=== PATIENT | male | born 1990 | race Caucasian/White ===

== ENCOUNTER 2022-06-20 17:39 | Emergency (ER) | payer OTHER, SELFPAY ==
[2022-06-20 18:00] VITALS: BP 156/109; PULSE 97; RESP 16; TEMP 37; O2SAT 96; BMI 23.3
--- NOTE | 2022-06-20 18:42 | ED.GENADULT ---
HPI - General Adult General Chief complaint: Toxicology Problem Stated complaint: welbutrin bad reaction/vomiting/anxious Time Seen by Provider: 06/20/22 18:11 Source: patient and family Mode of arrival: Ambulatory History of Present Illness HPI narrative: 32-year-old gentleman with a history of anxiety and depression currently [employer] and [place] Was initially prescribed Prozac but found that it made him quite flat and had adverse sexual side effects. Medication was changed to Wellbutrin 150 SR b.i.d.. He was instructed to take 20 mg of Prozac to taper down and only once daily Wellbutrin 150 and then increase to Wellbutrin b.i.d. once the Prozac had been completely discontinued. In following this he is found that he is dramatically agitated, can not sit focus or concentrate. He is having difficulty sleeping. He is lost almost 15 lb in a week. He feels like he is going to climb out of his skin in his convinced he is in fact ?going crazy?. He is not complaining of headaches palpitations, chest pain, seizure-like activity. He does have outpatient counseling follow-up as well as Psychiatry follow-up. Is not feeling suicidal. Review of Systems Review of Systems Narrative: Remainder of complete review of systems is otherwise unremarkable except for that included in the HPI. Patient History Medical History (Updated 06/21/22 @ 01:56 by Elsy Moyer MD) Anxiety and depression Social History Smoking Status: Never smoker Smoking Status: Never smoker alcohol intake frequency: holidays/special occasions only Substance Use Type: does not use Exam Initial Vital Signs Initial Vital Signs: Vital Signs Temperature 98.6 F 06/20/22 18:00 Pulse Rate 97 H 06/20/22 18:00 Respiratory Rate 16 06/20/22 18:00 Blood Pressure 156/109 H 06/20/22 18:00 Pulse Oximetry 96 06/20/22 18:00 Oxygen Delivery Method 06/20/22 18:00 General: Alert, psychomotor agitation, anxious Respiratory: Able to speak in full sentences, no obvious respiratory distress Cardiac: Mild tachycardia without murmurs Skin: No obvious rashes, warm and dry Neurologic: Grossly intact no obvious asymmetries or abnormalities Psych: appropriate insight and affect, cooperative, Course Orders Ordered: Discontinued Medications Diazepam (Diazepam 5 Mg Tablet) 5 mg PO NOW ONE Stop: 06/20/22 18:43 Last Admin: 06/20/22 19:01 Dose: 5 mg Documented By: CHING Vital Signs Vital signs: Vital Signs - 8 hr 06/20/22 18:00 06/20/22 19:09 Temperature 98.6 F Pulse Rate 97 H 82 Respiratory Rate 16 14 Blood Pressure 156/109 H 134/83 Pulse Oximetry 96 94 Oxygen Delivery Method Room Air Room Air Medical Decision Making MDM Narrative Medical decision making narrative: CC: Increased agitation with new medication. This is a new problem, uncertain diagnosis with potential for life-threatening complication Complicating co-morbidities: ADHD, anxiety, depression Corroborating data: Data collected from: patient, Differential considered: Nehal, acute psychosis, psychomotor agitation, adverse reaction to medication, anxiety Exam documented above, pertinent findings include: Psychomotor agitation with good insight into his increased anxiety and concern that medications are making symptoms worse. Discussion: 32-year-old gentleman with significant reaction to Prozac at 40 mg and Wellbutrin to replace it increased to 150 mg b.i.d.. In the fact that he does have ADHD using the more stimulating Wellbutrin certainly makes sense however he has not been able to sleep eat he is lost 15 lb he is having difficulty focusing and isn't sure what to do. He is afraid to stop the medication and he is also afraid to continue the medication. We would a long discussion about anxiety and medication side effects. At this point I do not think he is exhibiting acute psychosis or hypomania. He is not having any suicidal ideation. He was very relieved to know that he could stop the medication. He was given 5 mg of oral diazepam in the emergency department to help with the immediate anxiety and we discussed the timeframe to expect the Wellbutrin to be completely out of his system. Encouraged him to contact his psychiatrist tomorrow to schedule at least a tele video appointment. Clearly Wellbutrin and Prozac are not going to be options and treating his anxiety. I did reassure him that there are multiple other options and help is still going to be very available. He and his were both reassured and he is safe for discharge home Disposition: see below, along with detailed discharge instructions that have been reviewed with patient as well as indications for ED re-evaluation and additional outpatient follow up Discharge Plan Departure Patient Disposition: Home Clinical Impression: Anxiety Adverse drug reaction Qualifiers: Encounter type: initial encounter Qualified Code(s): T50.905A - Adverse effect of unspecified drugs, medicaments and biological substances, initial encounter Instructions: DI for Anxiety -- Adult Activity Restrictions/Additional Instructions: Thank you for coming in today I am sorry you are suffering with the side effects of these medications. Clearly, your body and body chemistry does not mix well with prozac or wellbutrin. You can just stop the wellbutrin, you have not been on it long enough to need to taper. I have given you a 5mg dose of diazepam, an anxiety medication, to help with the overstimulation and agitation from the wellbutrin. These are known side effects of wellbutrin (this in not an allergic reaction). Some people simply have more impressive reactions. I would expect the significant agitation to improve over the next 12-24 hours and the rest of the symptoms to improve as the medicine works it way out of your system. I would recommend no working for the next week. It is absolutely appropriate to give yourself time for your mental health the same way you would if you had a significant pneumonia. Please call your psychiatrist and let them know you were in the ER with severe side effects from your medications (15lb weight loss, no sleep, severe psychomotor agitation) and need at lease a telemedicine appointment. If you have issues tonight, I am in the ER until 7am, you can call back at [phone] to talk with me. This will get better. You are not going crazy. There are still many options to help treat your anxiety. I wish you the best Stand Alone Forms: Patient Portal/API, Work Release Note
[2022-06-20] MEDS: diazePAM 5 MG TABLET PO (19:01)
[2022-06-20 19:09] VITALS: BP 134/83; PULSE 82; RESP 14; O2SAT 94
== END 2022-06-20 19:11 | disposition home or self-care (01) ==
PROVIDERS: Emergency Provider Emergency Medicine
DX: F41.9 Anxiety disorder, unspecified (principal); T50.905A Adverse effect of unspecified drugs, medicaments and biological substances, initial encounter
CPT/HCPCS: 99283